=== PATIENT | male | born 1945 | race Caucasian/White ===

== ENCOUNTER 2017-11-28 01:34 | Outpatient (CLI) | payer MEDICARE | END 2017-11-28 23:59 | disposition home or self-care (01) | LOC: DIABETIC 01:34 | PROVIDERS: ATTEND Internal Medicine Interventional Cardiology | DX: E11.9 Type 2 diabetes mellitus without complications (principal) | CPT/HCPCS: G0108 ==

== ENCOUNTER 2018-02-22 01:32 | Outpatient (CLI) | payer MEDICARE | END 2018-02-22 23:59 | disposition home or self-care (01) | LOC: DIABETIC 01:32 | PROVIDERS: ATTEND Internal Medicine Interventional Cardiology | DX: E11.9 Type 2 diabetes mellitus without complications (principal); R53.83 Other fatigue | CPT/HCPCS: G0108 ==

== ENCOUNTER 2020-03-02 14:50 | Emergency (ER) | payer MEDICARE, BC ==
[~2020-03-02] VITALS: Ht 185.4 cm; Wt 111.4 kg
[2020-03-02 15:14] VITALS: BP 157/95
== END 2020-03-02 15:51 | disposition home or self-care (01) ==
LOC: ER 14:51
DX: R42 Dizziness and giddiness (principal); R50.9 Fever, unspecified; R09.81 Nasal congestion; I10 Essential (primary) hypertension; Z20.828 Contact with and (suspected) exposure to other viral communicable diseases
CPT/HCPCS: 36415; 87635; 99283

== ENCOUNTER 2022-08-23 12:15 | Outpatient (CLI) | payer MEDICARE, BC ==
[2022-08-23] VITALS (18 sets, daily range): BP systolic 118–156; BP diastolic 47–97
== END 2022-08-23 23:59 | disposition home or self-care (01) ==
LOC: CARD DIAG 12:15
PROVIDERS: ATTEND Internal Medicine Interventional Cardiology
DX: R55 Syncope and collapse (principal)
CPT/HCPCS: 93660

== ENCOUNTER 2023-04-14 13:44 | Inpatient (IN) | payer BC, MEDICARE ==
[~2023-04-14] VITALS: Ht 188 cm; Wt 122.7 kg
[2023-04-14] MEDS ORDERED: diatrozoate meglu/diatrozoate sod (37% iodine) 120ML oral solution PO ONE (15:45)
[2023-04-14] MEDS ORDERED: diatr meglu/diatrizoate 30ml oral sol.-(3 dose) bottle PO ONE (15:55)
[2023-04-14] MEDS ORDERED: mag hydrox/Alum hydrox/simeth 30ml oral suspension PO PRN (18:40)
[2023-04-14] MEDS ORDERED: potassium Cl 40MEQ/1/2NS 520ml 520 ML IV PRN (18:40)
[2023-04-14] MEDS ORDERED: potassium Cl 20 mEq SR tablet PO PRN ×2 (18:40)
[2023-04-14] MEDS ORDERED: magnesium 4gm in 100ml NS 100 ML IV PRN (18:40)
[2023-04-14] MEDS ORDERED: acetaminophen 650mg rectal suppository RC PRN (18:40)
[2023-04-14] MEDS ORDERED: albuterol 2.5 MG/3 ML nebule NEB PRN (18:40)
[2023-04-14] MEDS ORDERED: magnesium 2GM in 50ml NS 50 ML IV PRN (18:40)
[2023-04-14] MEDS ORDERED: ondansetron/PF 4mg/2ml inj IV PRN (18:40)
[2023-04-14] MEDS ORDERED: bisacodyl 10mg suppository rectal RC PRN (18:40)
[2023-04-14] MEDS ORDERED: ipratropium/albuterol 3ml nebule NEB PRN (18:40)
[2023-04-14] MEDS: normal saline 1000ml 1,000 ML IV SCH (18:55)
[2023-04-14 19:05] LABS: BASOPHILS % (AUTO) 0.1 % (0-1); EOSINOPHILS # (AUTO) 0.1 X10'3 (0-0.9); EOSINOPHILS % (AUTO) 0.6 % (0-6); HEMATOCRIT 28.2 % (42.0-52.0); HEMOGLOBIN 8.9 g/dl (14.0-17.9); LYMPHOCYTES # (AUTO) 1.3 X10'3 (1.1-4.8); LYMPHOCYTES % (AUTO) 9.7 % (21-51); MEAN CORPUSCULAR HEMOGLOBIN 29.5 PG (27.0-31.0); MEAN CORPUSCULAR HGB CONC 31.6 g/dL (33.0-36.5); MEAN CORPUSCULAR VOLUME 93.5 FL (78-98); MEAN PLATELET VOLUME 9.9 FL (7.4-10.4); MONOCYTES # (AUTO) 0.4 X10'3 (0-0.9); MONOCYTES % (AUTO) 3.3 % (2-12); NEUTROPHILS # (AUTO) 11.1 X10'3 (1.8-7.7); NEUTROPHILS % (AUTO) 86.3 % (42-75); PLATELET COUNT 110 X10'3 (140-440); RED BLOOD COUNT 3.01 X10'6 (4.70-6.10); WHITE BLOOD COUNT 12.9 X10'3 (4.5-11.0)
[2023-04-14 19:23] LABS: ALANINE AMINOTRANSFERASE 56 U/L (12-78); ALBUMIN 2.1 G/DL (3.4-5.0); ALBUMIN/GLOBULIN RATIO 0.4 (1.1-1.5); ALKALINE PHOSPHATASE 142 IU/L (46-116); ANION GAP 13 (8-16); ASPARTATE AMINO TRANSFERASE 24 U/L (10-37); BLOOD UREA NITROGEN 43 MG/DL (7-18); BUN/CREATININE RATIO 26.2 (10.0-20.0); CALCIUM 8.7 MG/DL (8.5-10.1); CHLORIDE 114 MMOL/L (99-107); CREATININE 1.64 MG/DL (0.60-1.10); GLUCOSE 144 MG/DL (70-104); POTASSIUM 3.2 MMOL/L (3.5-5.1); TOTAL CARBON DIOXIDE 31.5 MMOL/L (24-32); TOTAL PROTEIN 6.8 G/DL (6.4-8.2); eCRCL 42 ML/MIN; eGFR 41 ML/MIN
[2023-04-14 19:29] LABS: ANISOCYTOSIS 2+; PLATELET ESTIMATE DECREASED
[2023-04-14 19:30] LABS: SODIUM 158 MMOL/L (135-145)
[2023-04-14 19:36] LABS: HYPOCHROMASIA 1+; POIKILOCYTOSIS FEW
[2023-04-14 19:37] LABS: ELLIPTOCYTES 1+; LARGE PLATELETS FEW; STOMATOCYTES 1+
[2023-04-14] MEDS: K and/or MAG REPLACEMENT MC SCH (20:00)
[2023-04-14] MEDS ORDERED: HYDROmorphone inj. 0.5 MG/0.5 ML DISP.SYRIN IV ONE (20:30)
[2023-04-14] MEDS ORDERED: potassium CL 20mEq in D5-1/2NS 1,000 ML IV SCH (20:30)
[2023-04-14] MEDS ORDERED: enoxaparin 30mg/0.3ml syringe SUBCUT SCH (21:00)
[2023-04-14] MEDS ORDERED: LEVO75CA5 PO (21:06)
[2023-04-14] MEDS ORDERED: [UNRECOGNIZED DRUG - CODE] IJ (21:06)
[2023-04-14] MEDS ORDERED: LIDO1ADH78 TOP (21:06)
[2023-04-14] MEDS ORDERED: DOCU50LI24 PO (21:06)
[2023-04-14] MEDS ORDERED: APIX5TAB3 PO (21:06)
[2023-04-14] MEDS ORDERED: [UNRECOGNIZED DRUG - CODE] PO (21:06)
[2023-04-14] MEDS ORDERED: ATOR-2 PO (21:06)
[2023-04-14] MEDS ORDERED: INSU200I SQ (21:06)
[2023-04-14] MEDS ORDERED: LEVO500P12 IV (21:21)
[2023-04-14] MEDS ORDERED: OXYC5CAP19 PO (21:21)
[2023-04-14] MEDS ORDERED: PANT40VI2 IV (21:21)
[2023-04-14] MEDS ORDERED: POTA40LI16 PO (21:21)
[2023-04-14] MEDS ORDERED: NYSPWD TP (21:21)
[2023-04-14] MEDS ORDERED: POLY17PO10 PO (21:21)
[2023-04-14] MEDS ORDERED: VANC1.5P36 IV (21:28)
[2023-04-14 21:57] VITALS: PULSE 77; RESP 18; O2SAT 95
[2023-04-15] VITALS (11 sets, daily range): BP systolic 103–141; BP diastolic 55–79; PULSE 69–96; RESP 10–19; TEMP 97.6–97.8; O2SAT 94–100
[2023-04-15] MEDS ORDERED: hydrocortisone sod succ/PF 250mg/2ml inj. IV SCH (01:05)
[2023-04-15] MEDS: hydrocortisone sod succ/PF 100mg/2ml inj. IV SCH ×2 (01:40→08:21)
[2023-04-15 03:08] LABS: BASOPHILS # (AUTO) 0.1 X10'3 (0-0.2); BASOPHILS % (AUTO) 0.4 % (0-1); EOSINOPHILS # (AUTO) 0.1 X10'3 (0-0.9); EOSINOPHILS % (AUTO) 1.1 % (0-6); HEMATOCRIT 30.6 % (42.0-52.0); HEMOGLOBIN 9.4 g/dl (14.0-17.9); LYMPHOCYTES # (AUTO) 1.1 X10'3 (1.1-4.8); MEAN CORPUSCULAR HEMOGLOBIN 29.1 PG (27.0-31.0); MEAN CORPUSCULAR HGB CONC 30.8 g/dL (33.0-36.5); MEAN CORPUSCULAR VOLUME 94.5 FL (78-98); MEAN PLATELET VOLUME 10.7 FL (7.4-10.4); MONOCYTES # (AUTO) 0.4 X10'3 (0-0.9); MONOCYTES % (AUTO) 3.3 % (2-12); NEUTROPHILS # (AUTO) 10.8 X10'3 (1.8-7.7); NEUTROPHILS % (AUTO) 86.2 % (42-75); PLATELET COUNT 124 X10'3 (140-440); RED BLOOD COUNT 3.23 X10'6 (4.70-6.10); RED CELL DISTRIBUTION WIDTH 20.3 % (11.5-14.5); WHITE BLOOD COUNT 12.6 X10'3 (4.5-11.0)
[2023-04-15 03:59] LABS: ALANINE AMINOTRANSFERASE 73 U/L (12-78); ALBUMIN 2.2 G/DL (3.4-5.0); ALBUMIN/GLOBULIN RATIO 0.4 (1.1-1.5); ALKALINE PHOSPHATASE 138 IU/L (46-116); ANION GAP 8 (8-16); ASPARTATE AMINO TRANSFERASE 25 U/L (10-37); BILIRUBIN,TOTAL 1.9 MG/DL (0.1-1.0); BLOOD UREA NITROGEN 45 MG/DL (7-18); BUN/CREATININE RATIO 27.1 (10.0-20.0); CALCIUM 8.9 MG/DL (8.5-10.1); CHLORIDE 115 MMOL/L (99-107); CREATININE 1.66 MG/DL (0.60-1.10); GLUCOSE 122 MG/DL (70-104); MAGNESIUM 2.5 MG/DL (1.5-2.4); POTASSIUM 3.1 MMOL/L (3.5-5.1); TOTAL CARBON DIOXIDE 33.3 MMOL/L (24-32); TOTAL PROTEIN 7.2 G/DL (6.4-8.2); eCRCL 42 ML/MIN; eGFR 40 ML/MIN
[2023-04-15 04:19] LABS: SODIUM 156 MMOL/L (135-145)
[2023-04-15] MEDS ORDERED: methylphenidate 5mg tablet PO SCH (08:00)
[2023-04-15] MEDS: K and/or MAG REPLACEMENT MC SCH (08:00)
[2023-04-15] MEDS ORDERED: magnesium 2GM in 50ml NS 50 ML IV PRN (08:20)
[2023-04-15] MEDS ORDERED: magnesium 4gm in 100ml NS 100 ML IV PRN (08:20)
[2023-04-15] MEDS ORDERED: MIDAZolam 1 MG/ML 5ML VIAL ONE (08:50)
[2023-04-15] MEDS ORDERED: LIDOcaine Viscous 15ml cup ONE (08:50)
[2023-04-15] MEDS ORDERED: fentaNYL/PF 50MCG/1 ML 2ML syringe ONE (08:50)
[2023-04-15] MEDS ORDERED: levoFLOXACIN-Levaquin 500mg/D5 100 ML IV ONE (09:15)
[2023-04-15] MEDS ORDERED: VANCOmycin 2,000MG in NS 500ml IV soln IV ONE (10:00)
[2023-04-15] MEDS: normal saline 1000ml 1,000 ML IV SCH (12:03)
[2023-04-15 12:52] LABS: ALANINE AMINOTRANSFERASE 51 U/L (12-78); ALBUMIN/GLOBULIN RATIO 0.4 (1.1-1.5); ALKALINE PHOSPHATASE 130 IU/L (46-116); ANION GAP 6 (8-16); ASPARTATE AMINO TRANSFERASE 34 U/L (10-37); BILIRUBIN,TOTAL 1.5 MG/DL (0.1-1.0); BLOOD UREA NITROGEN 42 MG/DL (7-18); BUN/CREATININE RATIO 27.5 (10.0-20.0); CALCIUM 8.8 MG/DL (8.5-10.1); CHLORIDE 116 MMOL/L (99-107); CREATININE 1.53 MG/DL (0.60-1.10); GLUCOSE 156 MG/DL (70-104); TOTAL CARBON DIOXIDE 33.2 MMOL/L (24-32); TOTAL PROTEIN 6.9 G/DL (6.4-8.2); eCRCL 46 ML/MIN; eGFR 44 ML/MIN
[2023-04-15 12:55] LABS: POTASSIUM 2.9 MMOL/L (3.5-5.1); SODIUM 155 MMOL/L (135-145)
[2023-04-15] MEDS ORDERED: tPA-cathflo 2 MG/2 ml IV flush IVF ONE (13:00)
[2023-04-15] MEDS: dextrose 5%-water 1,000 ML IV SCH ×2 (13:09→18:20)
[2023-04-15] MEDS ORDERED: POTASSIUM BICARB 20meq eff tab 20 MEQ TABLET.EFF PO PRN ×2 (15:10)
[2023-04-15] MEDS ORDERED: POTASSIUM BICARB 20meq eff tab 20 MEQ TABLET.EFF PEG PRN ×2 (15:50)
[2023-04-15] MEDS ORDERED: polyethylene glycol 3350 17gm powd pack PEG PRN (15:50)
[2023-04-15] MEDS ORDERED: mag hydrox/Alum hydrox/simeth 30ml oral suspension PEG PRN (15:56)
[2023-04-15] MEDS ORDERED: oxyCODONE IR 5mg (immed. release) tablet PO PRN (16:00)
[2023-04-15] MEDS ORDERED: apixaban 5mg tablet PEG SCH (20:00)
[2023-04-15] MEDS ORDERED: docusate sodium 100mg/10ml UD cup PEG SCH (20:00)
[2023-04-15] MEDS ORDERED: nystatin 15 GM powder TP SCH (20:00)
[2023-04-16] MEDS ORDERED: vancomycin/NS 1 GM ADD-VANTAGE 250 ML IV SCH (01:00)
[2023-04-16] MEDS ORDERED: levoTHYROXINE 75mcg tablet PEG SCH (07:00)
[2023-04-16] MEDS ORDERED: atorvastatin 20mg tablet PEG SCH (08:00)
[2023-04-16] MEDS ORDERED: levoFLOXACIN-Levaquin 250mg/D5 50 ML IV SCH (08:00)
[2023-04-16] MEDS ORDERED: lansoprazole 15mg solutab PEG SCH (08:00)
[2023-04-16] MEDS ORDERED: LIDOCAINE TOP SCH (08:00)
[2023-04-17] MEDS ORDERED: VANCOMYCIN LEVEL IV ONE (00:30)
== END 2023-04-15 20:30 | DRG 871 ==
LOC: ER 13:45 → ED HOLD 18:44 → PCU 3S 04-15 05:51
PROVIDERS: ADMIT Family Medicine; ATTEND Family Medicine
PROC: 0D20XUZ Change Feeding Device in Upper Intestinal Tract, External Approach (ICD-10-PCS; principal; 2023-04-14)
PROC: 0DH63UZ Insertion of Feeding Device into Stomach, Percutaneous Approach (ICD-10-PCS; 2023-04-15)
DX: A41.9 Sepsis, unspecified organism (principal); G93.41 Metabolic encephalopathy; K94.23 Gastrostomy malfunction; E27.40 Unspecified adrenocortical insufficiency; E87.1 Hypo-osmolality and hyponatremia; E03.9 Hypothyroidism, unspecified; E87.6 Hypokalemia; I10 Essential (primary) hypertension; E11.9 Type 2 diabetes mellitus without complications; Y83.3 Surgical operation with formation of external stoma as the cause of abnormal reaction of the patient, or of later complication, without mention of misadventure at the time of the procedure; Z93.0 Tracheostomy status; Z79.4 Long term (current) use of insulin; Z88.0 Allergy status to penicillin; Z88.5 Allergy status to narcotic agent; Z79.899 Other long term (current) drug therapy; Y92.89 Other specified places as the place of occurrence of the external cause; Z86.73 Personal history of transient ischemic attack (TIA), and cerebral infarction without residual deficits
CPT/HCPCS: 36415; 43246; 74018; 80053; 82948; 83735; 85008; 85025; 87081; 93005; 94760; 99152; 99285; A4338; A4620; A6258; B4087; G0378; J1170; J1650; J1720; J1956; J2250; J2997; J3010; J3370; J3480; J7030; J7040; J7070; Q9963

== ENCOUNTER 2024-04-12 05:52 | Inpatient (IN) | payer MEDICARE, OTHER ==
[2024-04-11 13:33] LABS: BASOPHILS % (AUTO) 0.4 % (0-1); EOSINOPHILS % (AUTO) 0.4 % (0-6); LYMPHOCYTES # (AUTO) 0.7 X10'3 (1.1-4.8); MEAN CORPUSCULAR HEMOGLOBIN 28.5 PG (27.0-31.0); MEAN CORPUSCULAR VOLUME 86.4 FL (78-98); MEAN PLATELET VOLUME 9.3 FL (7.4-10.4); MONOCYTES # (AUTO) 0.3 X10'3 (0-0.9); MONOCYTES % (AUTO) 3.3 % (2-12); NEUTROPHILS # (AUTO) 8.8 X10'3 (1.8-7.7); NEUTROPHILS % (AUTO) 88.9 % (42-75); PRE OP HEMATOCRIT 35.9 % (42.0-52.0); PRE OP HEMOGLOBIN 11.8 g/dL (14.0-17.9); PRE OP PLATELET COUNT 267 X10'3 (140-440); PRE OP WHITE BLOOD COUNT 9.9 10'3 (4.8-10.8); RED BLOOD COUNT 4.16 X10'6 (4.70-6.10)
[2024-04-11 13:48] LABS: PRE OP PROTIME 10.4 SECONDS (9.0-12.0)
[2024-04-11 13:57] LABS: ALBUMIN 2.6 G/DL (3.4-5.0); ALBUMIN/GLOBULIN RATIO 0.4 (1.1-1.5); ALKALINE PHOSPHATASE 105 IU/L (46-116); BLOOD UREA NITROGEN 20 MG/DL (7-18); CALCIUM 9.4 MG/DL (8.5-10.1); CHLORIDE 104 MMOL/L (99-107); CREATININE 1.54 MG/DL (0.60-1.10); PRE OP ALT 19 U/L (30-65); PRE OP ANION GAP 10 (8-16); PRE OP AST 13 U/L (10-37); PRE OP BILIRUB, TOTAL 0.5 MG/DL (0.0-1.0); PRE OP GLUCOSE 121 MG/DL (70-104); PRE OP POTASSIUM 3.5 MMOL/L (3.4-5.1); PRE OP SODIUM 138 MMOL/L (135-145); THYROID STIMULATING HORMONE 0.73 ulU/ml (0.34-4.50); TOTAL CARBON DIOXIDE 23.7 MMOL/L (24-32); TOTAL PROTEIN 8.6 G/DL (6.4-8.2); eGFR 44 ML/MIN
[~2024-04-12] VITALS: Ht 185.4 cm; Wt 92.5 kg
[2024-04-12] VITALS (32 sets, daily range): BP systolic 105–142; BP diastolic 58–80; PULSE 53–66; RESP 12–19; TEMP 97.6–98; O2SAT 91–100
[2024-04-12] MEDS: DOCUMENT DATE & TIME OF BETA-BLOCKER PO ONE (05:30)
[2024-04-12] MEDS: ringers solution, lacted 1,000 ML IV SCH ×2 (05:30→09:30)
[~2024-04-12 05:52] MED LIST: ACET-2006 PO; ACET325T65 PO; AMLO5TAB16 PO; APIX5TAB3 PO; ATOR-2 PO; BISA-155 PO; CARV3.122 PO; CITA10TA93 PO; DAPA10TA PO; DEXT15LI31 PO; DOXY-1 PO; DULO60CA65 PO; GABA-530 PO; HYDR10TA PO; IBUP-2697 PO; LEVO500P12 IV; LEVO75TA PO; LIDO30CR TOP; LOPE2CAP PO; MAGN400O6 PO; MENT7.6L8 PO; NEOM1OIN8 TP; OMEP40CA21 PO; OXYC10TA57 PO; SODI650T29 PO
[2024-04-12] MEDS: metoprolol tartrate 12.5mg (1/2 tablet) PO ONE (06:38)
[2024-04-12] MEDS: VANCOMYCIN/WATER FOR INJ (PEG) 1.5GM/300 ML IVPB IV ONE (06:38)
[2024-04-12] MEDS: famotidine 20mg tablet PO ONE (06:38)
[2024-04-12] MEDS ORDERED: BUPIVAcaine 2.5mg/ml inj 50ml vial (contains preservative) ONE (06:53)
[2024-04-12] MEDS ORDERED: LIDOcaine 1% 30ml preserv. free vial ONE (06:53)
[2024-04-12] MEDS ORDERED: ceFAZolin 1000mg inj ONE (06:53)
[2024-04-12] MEDS: hydrocortisone sod succ/PF 100mg/2ml inj. IV STA (08:16)
[2024-04-12] MEDS ORDERED: sevoflurane 250ml liquid IH ONE (08:17)
[2024-04-12] MEDS ORDERED: midazolam 1 mg/ML 2ml injection ONE (08:21)
[2024-04-12] MEDS ORDERED: fentaNYL/PF 50MCG/1 ML 2ML syringe ONE (08:21)
[2024-04-12] MEDS ORDERED: LIDOcaine 2% (20mg/ml) 5ml vial ONE (08:36)
[2024-04-12] MEDS ORDERED: rocuronium 10mg/ml inj IV ONE ×2 (08:36)
[2024-04-12] MEDS ORDERED: propofol inj 20 ML IV ONE (08:36)
[2024-04-12] MEDS ORDERED: sugammadex 200mg/2ml injection IV ONE (09:01)
[2024-04-12] MEDS ORDERED: ondansetron/PF 4mg/2ml inj IV PRN (09:20)
[2024-04-12] MEDS ORDERED: potassium Cl 20 mEq SR tablet PO PRN (09:20)
[2024-04-12] MEDS ORDERED: magnesium sulf-water 4G/100mL 100 ML IV PRN (09:20)
[2024-04-12] MEDS: normal saline 1000ml 1,000 ML IV SCH (09:20)
[2024-04-12] MEDS ORDERED: mag hydrox/Alum hydrox/simeth 30ml oral suspension PO PRN (09:20)
[2024-04-12] MEDS ORDERED: HYDROcodone/acetaminophen 5mg/325mg tablet PO PRN (09:20)
[2024-04-12] MEDS ORDERED: magnesium sulf-water 2g/50mL 50 ML IV PRN (09:20)
[2024-04-12] MEDS ORDERED: magnesium Cl slow-release 64mg tablet PO PRN (09:20)
[2024-04-12] MEDS ORDERED: acetaminophen 325mg tablet PO PRN (09:20)
[2024-04-12] MEDS ORDERED: magnesium hydroxide 30ml (MOM) UD suspension PO PRN (09:20)
[2024-04-12] MEDS ORDERED: HYDROcodone/acetaminophen 10/325mg tab PO PRN (09:20)
[2024-04-12] MEDS ORDERED: potassium Cl 40MEQ/1/2NS 520ml 520 ML IV PRN (09:20)
[2024-04-12] MEDS ORDERED: labetalol 20mg/4ml (5mg/ml) syringe IV PRN (09:30)
[2024-04-12] MEDS ORDERED: meperidine/PF 25mg/ml syringe IV PRN (09:30)
[2024-04-12] MEDS ORDERED: enalaprilat dihydrate 2.5mg/2ml vial IV PRN (09:30)
[2024-04-12] MEDS ORDERED: proCHLORperazine 10 MG/2 ml inj IV PRN (09:30)
[2024-04-12] MEDS: meperidine/PF 25mg/ml syringe IV PRN (09:43)
[2024-04-12] MEDS: heparin, porcine 5000 units/ml vial SQ SCH (16:12)
[2024-04-12] MEDS: docusate sod 100mg capsule PO SCH (19:51)
[2024-04-12] MEDS: K and/or MAG REPLACEMENT MC SCH (20:00)
[2024-04-13] VITALS (8 sets, daily range): BP systolic 129–138; BP diastolic 69–87; PULSE 57–89; RESP 15–25; TEMP 97.6–98.6; O2SAT 92–98
[2024-04-13 07:17] LABS: BASOPHILS # (AUTO) 0.1 X10'3 (0-0.2); BASOPHILS % (AUTO) 0.8 % (0-1); EOSINOPHILS # (AUTO) 0.1 X10'3 (0-0.9); EOSINOPHILS % (AUTO) 1.2 % (0-6); HEMATOCRIT 32.6 % (42.0-52.0); HEMOGLOBIN 10.7 g/dl (14.0-17.9); LYMPHOCYTES # (AUTO) 1.7 X10'3 (1.1-4.8); LYMPHOCYTES % (AUTO) 20.1 % (21-51); MEAN CORPUSCULAR HEMOGLOBIN 28.4 PG (27.0-31.0); MEAN CORPUSCULAR HGB CONC 32.7 g/dL (33.0-36.5); MEAN CORPUSCULAR VOLUME 86.9 FL (78-98); MEAN PLATELET VOLUME 9.8 FL (7.4-10.4); MONOCYTES # (AUTO) 0.6 X10'3 (0-0.9); MONOCYTES % (AUTO) 7.4 % (2-12); NEUTROPHILS # (AUTO) 6.1 X10'3 (1.8-7.7); NEUTROPHILS % (AUTO) 70.5 % (42-75); PLATELET COUNT 208 X10'3 (140-440); RED BLOOD COUNT 3.75 X10'6 (4.70-6.10); RED CELL DISTRIBUTION WIDTH 16.9 % (11.5-14.5); WHITE BLOOD COUNT 8.6 X10'3 (4.5-11.0)
[2024-04-13 07:36] LABS: ALBUMIN 2.1 G/DL (3.4-5.0); ANION GAP 9 (8-16); BLOOD UREA NITROGEN 23 MG/DL (7-18); BUN/CREATININE RATIO 13.9 (10.0-20.0); CALCIUM 8.6 MG/DL (8.5-10.1); CHLORIDE 107 MMOL/L (99-107); CREATININE 1.65 MG/DL (0.60-1.10); GLUCOSE 89 MG/DL (70-104); MAGNESIUM 2.3 MG/DL (1.5-2.4); POTASSIUM 3.1 MMOL/L (3.5-5.1); SODIUM 140 MMOL/L (135-145); eCRCL 40 ML/MIN; eGFR 40 ML/MIN
[2024-04-13] MEDS: potassium Cl 20 mEq SR tablet PO PRN (09:00)
[2024-04-13] MEDS: potassium Cl 20 mEq SR tablet PO STA (14:43)
[2024-04-14 02:00] VITALS: BP 130/77; PULSE 85; RESP 14; TEMP 97.7; O2SAT 95
[2024-04-14 06:00] VITALS: BP 135/81; PULSE 74; RESP 18; TEMP 98.2; O2SAT 98
[2024-04-14 07:11] LABS: EOSINOPHILS # (AUTO) 0.1 X10'3 (0-0.9); HEMOGLOBIN 11.7 g/dl (14.0-17.9); MONOCYTES # (AUTO) 0.6 X10'3 (0-0.9); NEUTROPHILS # (AUTO) 4.9 X10'3 (1.8-7.7); WHITE BLOOD COUNT 7.4 X10'3 (4.5-11.0)
[2024-04-14 07:14] LABS: BASOPHILS % (AUTO) 0.5 % (0-1); EOSINOPHILS % (AUTO) 1.6 % (0-6); HEMATOCRIT 35.6 % (42.0-52.0); LYMPHOCYTES # (AUTO) 1.7 X10'3 (1.1-4.8); LYMPHOCYTES % (AUTO) 23.6 % (21-51); MEAN CORPUSCULAR HEMOGLOBIN 28.3 PG (27.0-31.0); MEAN CORPUSCULAR HGB CONC 32.9 g/dL (33.0-36.5); MEAN CORPUSCULAR VOLUME 86.1 FL (78-98); MONOCYTES % (AUTO) 8.1 % (2-12); NEUTROPHILS % (AUTO) 66.2 % (42-75); PLATELET COUNT 211 X10'3 (140-440); RED BLOOD COUNT 4.13 X10'6 (4.70-6.10); RED CELL DISTRIBUTION WIDTH 17.4 % (11.5-14.5)
[2024-04-14 08:22] LABS: ANION GAP 13 (8-16); BLOOD UREA NITROGEN 19 MG/DL (7-18); BUN/CREATININE RATIO 12.3 (10.0-20.0); CALCIUM 8.8 MG/DL (8.5-10.1); CHLORIDE 105 MMOL/L (99-107); CREATININE 1.54 MG/DL (0.60-1.10); GLUCOSE 89 MG/DL (70-104); POTASSIUM 3.3 MMOL/L (3.5-5.1); SODIUM 139 MMOL/L (135-145); TOTAL CARBON DIOXIDE 21.2 MMOL/L (24-32); eCRCL 43 ML/MIN; eGFR 44 ML/MIN
[2024-04-14 08:23] LABS: ALBUMIN 2.2 G/DL (3.4-5.0); MAGNESIUM 3.5 MG/DL (1.5-2.4)
== END 2024-04-14 12:19 | disposition home health service (06) | DRG 571 ==
LOC: PAS 05:52 → PCU 3S 09:24 → PAS 15:10 → PCU 3S 04-14 12:19 → PAS 04-14 12:19
PROVIDERS: ADMIT Thoracic Surgery (Cardiothoracic Vascular Surgery); ATTEND Thoracic Surgery (Cardiothoracic Vascular Surgery)
PROC: 0JB60ZZ Excision of Chest Subcutaneous Tissue and Fascia, Open Approach (ICD-10-PCS; principal; 2024-04-12 08:17)
PROC: 5A09357 Assistance with Respiratory Ventilation, Less than 24 Consecutive Hours, Continuous Positive Airway Pressure (ICD-10-PCS; 2024-04-13)
DX: L02.213 Cutaneous abscess of chest wall (principal); E44.1 Mild protein-calorie malnutrition; Z79.01 Long term (current) use of anticoagulants; Z68.26 Body mass index [BMI] 26.0-26.9, adult
CPT/HCPCS: 36415; 71046; 80048; 80053; 82948; 83735; 84443; 85025; 85610; 85730; 87070; 87075; 87077; 87081; A4215; A4615; A4618; A6250; A6258; G0378; J0690; J1644; J1720; J2003; J2175; J2250; J2704; J3010; J3372; J3490; J7030; J7120